=== PATIENT | male | born 1980 | race Caucasian/White ===

== ENCOUNTER 2017-03-01 20:46 | Emergency (ER) | payer BC ==
[~2017-03-01] VITALS: Ht 185.4 cm; Wt 180.4 kg
[~2017-03-01 20:46] MED LIST: ALLOPURINOL300 MG PO; ASPIR-LOW81 MG PO; ATENOLOL100 MG PO; GLIMEPIRIDE4 MG PO; GUAIFENESIN600 M1 PO; HYDROCHLOROTHIA25 MG PO; LAMISIL; LISINOPRIL40 MG PO; METFORMIN HCL1000 MG PO; MOTRIN800 MG PO; ROBITUSSIN NIG118 ML PO; TESSALON200 MG PO; ULTRAM50 MG PO
[2017-03-01 21:20] LABS: HEMATOCRIT 40.9 % (38.0-50.0); MCH 29.9 PG (29.0-34.0); MEAN PLAT.VOLUME 10.2 uM^3 (9.0-12.4); PLATELET COUNT 195 K/uL (156-360); RBC DIS.WIDTH-CV 12.6 % (11.8-14.6); RBC DIS.WIDTH-SD 40.5 % (39-53); RED BLOOD COUNT 4.65 M/uL (4.00-5.50); WHITE BLOOD COUNT 23.6 K/uL (4.1-10.2)
[2017-03-01 21:32] LABS: CHLORIDE 97 mEq/L (99-109); POTASSIUM 3.6 mEq/L (3.7-5.4); SODIUM 135 mEq/L (136-147)
[2017-03-01 21:34] LABS: GLUCOSE 368 mg/dL (70-99)
[2017-03-01 21:35] LABS: ANION GAP 12 MEQ/L (2-14)
[2017-03-01 21:38] LABS: GFR ESTIMATE (CALCULATED) > 59 mL/min/
[2017-03-01 21:38] LABS: ADD MIUA? YES; BILIRUBIN NEGATIVE; BLOOD NEGATIVE; COLOR YELLOW ((YELLOW)); GLUCOSE (STRIP) >=500; KETONES NEGATIVE; LEUKOCYTES MODERATE; NITRITE NEGATIVE; PROTEIN (STRIP) NEGATIVE; SPECIFIC GRAVITY 1.028 (1.000-1.030)
[2017-03-01 21:39] LABS: UREA NITROGEN (BUN) 17 mg/dL (9-23)
[2017-03-01 21:54] LABS: BACTERIA NONE SEEN /HPF; EPITHELIAL CELLS RARE /HPF; MUCUS NONE SEEN /LPF; WHITE BLOOD CELLS TNTC /HPF (0-5)
[2017-03-01] MEDS ORDERED: ZOFRAN ODT4 MG PO (22:59)
[2017-03-01] MEDS ORDERED: LEVAQUIN500 MG PO (22:59)
[2017-03-01] MEDS ORDERED: PERCOCET 5/31 TABLET PO (22:59)
[2017-03-02 00:33] VITALS: BP 136/82
== END 2017-03-02 00:47 | disposition home or self-care (01) ==
LOC: EME 20:46
PROVIDERS: Nurse Practitioner Family
DX: N45.1 Epididymitis (principal); I86.1 Scrotal varices; I10 Essential (primary) hypertension; Z87.440 Personal history of urinary (tract) infections; Z87.442 Personal history of urinary calculi; Z79.82 Long term (current) use of aspirin
CPT/HCPCS: 76870; 80048; 81003; 85027; 87040; 99281; 99285; J1885; J1956; J2270; J2405; J7030

== ENCOUNTER 2017-07-19 05:39 | Emergency (ER) | payer BC ==
[~2017-07-19] VITALS: Ht 185.4 cm; Wt 174.0 kg
[~2017-07-19 05:39] MED LIST changes: +LEVAQUIN500 MG PO; +PERCOCET 5/31 TABLET PO; +ZOFRAN ODT4 MG PO
[2017-07-19 06:24] LABS: APPEARANCE CLOUDY ((CLEAR)); BILIRUBIN NEGATIVE; BLOOD LARGE; COLOR AMBER ((YELLOW)); GLUCOSE (STRIP) NEGATIVE; KETONES NEGATIVE; LEUKOCYTES LARGE; NITRITE NEGATIVE; PROTEIN (STRIP) 30; SPECIFIC GRAVITY 1.023 (1.000-1.030)
[2017-07-19 06:40] LABS: BACTERIA RARE /HPF; EPITHELIAL CELLS NONE SEEN /HPF; MUCUS NONE SEEN /LPF; UCUL ADDED? YES
[2017-07-19 06:47] LABS: HEMOGLOBIN 14.2 G/DL (12.5-16.6); MCH 29.5 PG (29.0-34.0); MCHC 33.8 G/DL (30.0-36.0); MCV 87.3 FL (86-99); PLATELET COUNT 237 K/uL (156-360); RBC DIS.WIDTH-CV 12.7 % (11.8-14.6); RBC DIS.WIDTH-SD 40.4 % (39-53); RED BLOOD COUNT 4.81 M/uL (4.00-5.50); WHITE BLOOD COUNT 20.7 K/uL (4.1-10.2)
[2017-07-19 07:20] LABS: ALBUMIN 4.2 G/DL (3.2-4.8); CHLORIDE 100 MEQ/L (99-109); POTASSIUM 4.1 MEQ/L (3.7-5.4); SODIUM 136 MEQ/L (136-147); TOTAL BILIRUBIN 0.7 MG/DL (0.0-1.0)
[2017-07-19 07:26] LABS: ALKALINE PHOSPHATASE 62 IU/L (3-129); ALT (GPT) 33 IU/L (3-49); AST (GOT) 16 IU/L (2-34); CREATININE 0.7 MG/DL (0.6-1.3); GFR ESTIMATE (CALCULATED) > 59 mL/min/ (58.99-99999); GLUCOSE 203 mg/dL (70-99); TOTAL PROTEIN 7.8 G/DL (6.4-8.3); UREA NITROGEN (BUN) 12 mg/dL (9-23)
[2017-07-19] MEDS ORDERED: LEVAQUIN500 MG PO (11:32)
[2017-07-19] MEDS ORDERED: TYLENOL WITH C1 EACH PO (12:31)
[2017-07-19] MEDS ORDERED: ZOFRAN4 MG PO (12:31)
[2017-07-19 12:43] VITALS: BP 121/63
== END 2017-07-19 12:45 | disposition home or self-care (01) ==
LOC: EME 05:39
DX: N10 Acute pyelonephritis (principal); I10 Essential (primary) hypertension; Z87.442 Personal history of urinary calculi
CPT/HCPCS: 74176; 80053; 81003; 85027; 87086; 99281; 99284; J0696; J2270; J7030